=== PATIENT | female | born 1950 | race Caucasian/White ===

== ENCOUNTER 2024-10-04 10:03 | Outpatient (CLI) | payer MEDICARE, SELFPAY ==
--- NOTE | 2024-10-04 | FL_ITS ---
REPORT DID NOT CROSS, ORIGINAL SIGN DATE AND TIME 10/04/24 @ 1651 FL barium swallow modifd [id number] REASON FOR EXAM: Other dysphagia FLUOROSCOPY TIME: 2min [id number] # OF SPOT FILMS: None TECHNIQUE: Examination was supervised by the speech therapy department. The patient was examined in the sitting upright lateral projection. The swallowing of barium of multiple consistencies was monitored fluoroscopically and video recorded. FINDINGS: No aspiration was identified. No penetration. Prominent posterior cricopharyngeus impingement. Prominent cervical osteophyte posterior impingement. There was no impingement of the esophageal transit of the barium tablet. IMPRESSION: A detailed report of the swallowing will be rendered by the speech therapy department. No aspiration. Posterior cricopharyngeus and cervical osteophytosis posterior impingement on the cervical esophagus. MTDD
== END 2024-10-04 10:04 | disposition home or self-care (01) ==
LOC: RAD 10:09
PROVIDERS: PCP Nurse Practitioner Family; Visit Provider Nurse Practitioner Family
DX: R09.89 Other specified symptoms and signs involving the circulatory and respiratory systems (principal); R93.89 Abnormal findings on diagnostic imaging of other specified body structures; M25.78 Osteophyte, vertebrae
CPT/HCPCS: 74230; 92611

== ENCOUNTER 2025-02-20 13:02 | Outpatient (CLI) | payer MEDICARE, SELFPAY ==
--- NOTE | 2025-02-20 13:10 | CT_ITS ---
WS: [id number] LDCT LUNG CANCER SCREENING HISTORY: HX OF TOBACCO USE TECHNIQUE: Axial imaging performed from the apices to 1 cm below the costophrenic angles. Coronal and sagittal reformats are submitted with axial MIP series. All CT scans at [facility] use at least one of these dose optimization techniques: automated exposure control; mA and/or kV adjustment per patient size (includes targeted exams where dose is matched to clinical indication); or iterative reconstruction. DLP: 74.40 mGy.cm DIvol: Mean CTDIvol: 1.70 (mGy) COMPARISON: None available. Diagnostic quality: Satisfactory Lungs: Mild pulmonary hyperexpansion. Mild hazy attenuation throughout both lungs is probably related to smoking history. Linear pleural tagging RIGHT upper lobe. 3 mm nodule RIGHT middle lobe adjacent to the fissure. No endobronchial lesions. Heart: Normal size heart with no pericardial effusion.. Extensive coronary artery calcifications. Other findings: Mild atherosclerosis aorta. Normal size pulmonary artery. No adenopathy. Prior cholecystectomy. Super aortic calcifications. Low-attenuation mass superior pole RIGHT kidney with low Hounsfield units. Probably representing a 3 cm cyst. This can be further characterized by ultrasound. CT/CT lung screening [id number] IMPRESSION: LUNG-RADS: 2S-Benign Appearance or Behavior with Significant Findings FOLLOW UP: 12 Month: Continue annual screening with LDCT OTHER FINDINGS (S MODIFIER): Low-attenuation mass upper pole RIGHT kidney. Russell mmend renal ultrasound evaluation. May represent 3 cm cyst.
== END 2025-02-20 13:03 | disposition home or self-care (01) ==
LOC: RAD 13:03
PROVIDERS: PCP Nurse Practitioner Family; Visit Provider Nurse Practitioner Family
DX: Z12.2 Encounter for screening for malignant neoplasm of respiratory organs (principal); Z87.891 Personal history of nicotine dependence; J98.4 Other disorders of lung; I25.84 Coronary atherosclerosis due to calcified coronary lesion; I70.0 Atherosclerosis of aorta; Z90.49 Acquired absence of other specified parts of digestive tract
CPT/HCPCS: 71271